=== PATIENT | male | born 1945 | race Hispanic/Latino ===

== ENCOUNTER 2020-02-13 12:56 | Inpatient (IN) | payer MEDICARE ==
[~2020-02-13] VITALS: Ht 170.2 cm; Wt 79.4 kg
[2020-02-13] MEDS ORDERED: NOREPINEPHRINE 4MG/NS 250ML 250 ML IV ONE ×2 (13:00→20:26)
[2020-02-13 13:12] LABS: BASOPHILS % (AUTO) 0.2 % (0.0-5.0); EOSINOPHILS % (AUTO) 9.8 % (0.0-8.0); HEMATOCRIT 25.4 % (42-54); LYMPHOCYTES % (AUTO) 21.4 % (21.0-51.0); MEAN CORPUSCULAR HEMOGLOBIN 32.7 pg (27.0-33.0); MEAN CORPUSCULAR HGB CONC 31.9 g/dL (32.0-36.0); MEAN CORPUSCULAR VOLUME 102.4 fL (79-99); MONOCYTES % (AUTO) 9.8 % (3.0-13.0); NEUTROPHILS % (AUTO) 58.6 % (40.0-77.0); PLATELET COUNT (AUTO) 144 K/uL (130-400); RED BLOOD CELL COUNT(AUTO) 2.48 MIL/uL (4.50-6.20); RED CELL DISTRIBUTION WIDTH 15.9 % (11.0-15.5)
[2020-02-13 13:27] LABS: AMMONIA 187 umol/L (11-32); INR 1.12 (0.85-1.15); PARTIAL THROMBOPLASTIN TIME 32.3 SEC (26.3-35.5)
[2020-02-13 13:28] LABS: APPEARANCE,URINE Clear (CLEAR); BILIRUBIN,URINE Negative (NEGATIVE); COLOR,URINE Dark Yellow (YELLOW); GLUCOSE, URINE (UA) Negative (NEGATIVE); KETONES,URINE Negative (NEGATIVE); LEUKOCYTE ESTERASE ,URINE Trace (NEGATIVE); NITRATE,URINE Negative (NEGATIVE); OCCULT BLOOD,URINE Negative (NEGATIVE); PROTEIN,URINE Negative (NEGATIVE)
[2020-02-13] MEDS ORDERED: ZOSYN 3.375GM+NS 50ML 50 ML IV ONE (13:36)
[2020-02-13] MEDS ORDERED: VANCOMYCIN 1GM+NS 250ML 250 ML IV ONE (13:37)
[2020-02-13] MEDS ORDERED: LACTULOSE 20 GM/30 ML UDCUP ONE ×2 (13:37→18:13)
[2020-02-13 13:39] LABS: ALANINE AMINOTRANSFERASE 14 U/L (12-78); ALBUMIN 2.4 g/dL (3.5-5.0); ASPARTATE AMINOTRANSFERASE 37 U/L (10-37); BILIRUBIN,TOTAL 0.6 mg/dL (0.2-1.0); CARBON DIOXIDE 26 mmol/L (21-32); CHLORIDE 102 mmol/L (101-111); CREATINE KINASE, TOTAL 82 U/L (21-232); CREATININE 2.1 mg/dL (0.5-1.5); GLOMERULAR FILTR. RATE CALC 33 mL/min (>60); GLUCOSE,RANDOM 97 mg/dL (70-105); MYOGLOBIN 124 ng/mL (10-92); SODIUM SERUM 133 mmol/L (136-145); TOTAL PROTEIN, SERUM 6.9 g/dL (6.0-8.3); TROPONIN I < 0.04 ng/mL (0.00-0.06)
[2020-02-13 13:40] LABS: POTASSIUM 6.7 mmol/L (3.5-5.1); UREA NITROGEN, BLOOD 93 mg/dL (7-18)
[2020-02-13 13:46] LABS: ABG BASE EXCESS -2.4 mmol/L (-2.0-3.0); ABG HCO3 21.7 mmol/L (21.0-28.0); ABG OXYGEN SATURATION 98.8 % (95.0-99.0); ABG PCO2 36 mmHg (35-48)
[2020-02-13 13:46] LABS: BACTERIA,URINE Rare /HPF (None Seen); MUCUS,URINE Rare LPF (None Seen); RBC,URINE 0-1 /HPF (0-1); RENAL EPITHELIAL CELLS,URINE Few /HPF (None Seen); SQUAMOUS EPITHELIAL CELL,UR Rare /HPF (0-2); WBC,URINE 0-1 /HPF (0-1)
[2020-02-13] MEDS ORDERED: DEXTROSE 50%-WATER 50 ML DISP.SYRIN IV ONE ×2 (14:13→17:29)
[2020-02-13] MEDS ORDERED: SODIUM BICARB 50MEQ 50ML VIAL ONE ×3 (14:13→20:07)
[2020-02-13] MEDS ORDERED: CALCIUM GLUCONATE 1 GM/10 ML VIAL IV ONE ×2 (14:13→20:06)
[2020-02-13] MEDS ORDERED: INSULIN HUMULIN R 100 UNIT/ML 3ML ONE (14:14)
[2020-02-13] MEDS ORDERED: SODIUM CHLORIDE 0.9% 100 ML IV ONE (14:16)
[2020-02-13] MEDS ORDERED: ALBUTEROL INHALER 90MCG/INH IH ONE (14:42)
[2020-02-13] MEDS ORDERED: PANTOPRAZOLE 40 MG/VIAL ONE (16:40)
[2020-02-13] MEDS ORDERED: OCTREOTIDE ACETATE 200 MCG/ML 5 ML VIAL ONE (16:42)
[2020-02-13] MEDS ORDERED: OCTREOTIDE ACETATE 100 MCG/ML AMP ONE (16:42)
[2020-02-13 17:45] LABS: HEMATOCRIT 25.7 % (42-54)
[2020-02-13 17:54] LABS: RETICULOCYTE % (AUTO) 3.49 % (0.42-2.23)
[2020-02-13 18:12] LABS: % IRON SATURATION 17.9 % (30-44)
[2020-02-13] MEDS ORDERED: SODIUM CHLORIDE 0.9% 1000ML 1,000 ML IV SCH (18:30)
[2020-02-13] MEDS ORDERED: NOREPINEPHRINE BITARTRATE 8 MG/NS 250ML IV SCH ×2 (18:30)
[2020-02-13] MEDS ORDERED: LACTULOSE 20 GM/30 ML UDCUP PO SCH (18:30)
[2020-02-13 19:46] LABS: CREATININE 1.9 mg/dL (0.5-1.5)
[2020-02-13] MEDS: SODIUM POLYSTYRENE SULFONATE 15 GM/60 ML ML PO SCH (20:00)
[2020-02-13] MEDS ORDERED: SODIUM POLYSTYRENE SULFONATE 15 GM/60 ML ML ONE (20:06)
[2020-02-13] MEDS ORDERED: SODIUM CHLORIDE 0.9% 50 ML IV ONE (20:07)
[2020-02-13] MEDS: RIFAXIMIN 550 MG TABLET PO SCH (21:00)
[2020-02-13 22:30] VITALS: BP 110/65
[2020-02-13] MEDS: OCTREOTIDE ACETATE 500 MCG in SODIUM CHLORIDE 0.9% 97.5 ML IV SCH (22:30)
[2020-02-13] MEDS: LACTATED RINGERS 1000ML 1,000 ML IV SCH (22:30)
[2020-02-13] MEDS: PANTOPRAZOLE SODIUM 80 MG in NS 100ML IVP SCH (22:30)
--- NOTE | 2020-02-13 22:30 | NUR ---
Admitted from ER. Lethargic. Incomprehensible words when awakened and readily falls back asleep. Initial assessment completed. 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 F/C 18 fr to bedside drainage. Peg tube clamped. LR infusing at 100mls/hr, Norepinephrine drip at 22 mls/hr, Sandostatin drip at 5 mls/hr, Protonix drip at 10 mls/hr. Saturating 100% on 2 liters n/c
[2020-02-13 22:45] VITALS: BP 107/67
[2020-02-13 23:00] VITALS: BP 112/69
[2020-02-13] MEDS: ZOSYN 3.375GM+NS 50ML 50 ML IV SCH (23:10)
[2020-02-13 23:15] VITALS: BP 94/64
[2020-02-13 23:30] VITALS: BP 111/74
[2020-02-13 23:45] VITALS: BP 96/75
[2020-02-14] VITALS (37 sets, daily range): BP systolic 102–123; BP diastolic 63–88
[2020-02-14 00:17] LABS: HEMATOCRIT 25.6 % (42-54); MEAN CORPUSCULAR HGB CONC 31.6 g/dL (32.0-36.0); MEAN CORPUSCULAR VOLUME 101.2 fL (79-99); RED BLOOD CELL COUNT(AUTO) 2.53 MIL/uL (4.50-6.20); RED CELL DISTRIBUTION WIDTH 15.9 % (11.0-15.5); WHITE BLOOD COUNT (AUTO) 6.6 K/uL (4.8-10.8)
[2020-02-14 00:32] LABS: MAGNESIUM 2.5 mg/dL (1.80-2.40); PHOSPHORUS 4.8 mg/dL (2.5-4.9)
[2020-02-14 00:42] LABS: POTASSIUM 5.3 mmol/L (3.5-5.1)
[2020-02-14 00:43] LABS: CREATININE 1.8 mg/dL (0.5-1.5)
[2020-02-14] MEDS: LACTULOSE 20 GM/30 ML UDCUP PO SCH ×5 (01:22→16:28)
--- NOTE | 2020-02-14 02:00 | NUR ---
Awake now. Oriented to own name. Denies pain, sob. Emotional support given. Potassium level down to 5.3
[2020-02-14] MEDS ORDERED: PANTOPRAZOLE 40 MG/VIAL ONE (02:22)
[2020-02-14] MEDS ORDERED: SODIUM CHLORIDE 0.9% 100 ML IV ONE (02:23)
[2020-02-14] MEDS: SODIUM POLYSTYRENE SULFONATE 15 GM/60 ML ML PO SCH ×3 (04:00→08:11)
[2020-02-14] MEDS: ZOSYN 3.375GM+NS 50ML 50 ML IV SCH ×3 (04:49→21:13)
--- NOTE | 2020-02-14 05:00 | NUR ---
Had a very large, loose green andres colored bm. Bath and rhiannon care given. Complete linen changed.
[2020-02-14 06:08] LABS: HEMATOCRIT 25.8 % (42-54); MEAN CORPUSCULAR HEMOGLOBIN 32.5 pg (27.0-33.0); MEAN CORPUSCULAR HGB CONC 31.8 g/dL (32.0-36.0); MEAN CORPUSCULAR VOLUME 102.4 fL (79-99); RED BLOOD CELL COUNT(AUTO) 2.52 MIL/uL (4.50-6.20); RED CELL DISTRIBUTION WIDTH 15.9 % (11.0-15.5); WHITE BLOOD COUNT (AUTO) 4.8 K/uL (4.8-10.8)
[2020-02-14 06:17] LABS: CREATININE 1.7 mg/dL (0.5-1.5); MAGNESIUM 2.5 mg/dL (1.80-2.40); PHOSPHORUS 4.6 mg/dL (2.5-4.9); POTASSIUM 5.2 mmol/L (3.5-5.1)
[2020-02-14] MEDS ORDERED: NOREPINEPHRINE 4MG/NS 250ML 250 ML IV ONE (07:37)
[2020-02-14] MEDS: LACTATED RINGERS 1000ML 1,000 ML IV SCH (08:12)
[2020-02-14] MEDS: RIFAXIMIN 550 MG TABLET PO SCH ×2 (09:51→21:13)
[2020-02-14] MEDS: PANTOPRAZOLE SODIUM 80 MG in NS 100ML IVP SCH (09:57)
[2020-02-14] MEDS: OCTREOTIDE ACETATE 500 MCG in SODIUM CHLORIDE 0.9% 97.5 ML IV SCH (09:57)
[2020-02-14] MEDS ORDERED: MIDODRINE HCL 5 MG TABLET ONE (15:55)
[2020-02-14 16:01] LABS: INR 1.13 (0.85-1.15); PROTHROMBIN TIME 12.1 SEC (9.6-11.6)
[2020-02-14] MEDS: SODIUM CHLORIDE 0.9% 1000ML 1,000 ML IV SCH (16:26)
[2020-02-14] MEDS ORDERED: MIDODRINE HCL 5 MG TABLET PO SCH (17:15)
--- NOTE | 2020-02-14 19:00 | NUR ---
ACCEPTED CARE ACCEPTED CARE, REPORT RECEIVED USING SBAR FORMAT.
[2020-02-14] MEDS: MIDODRINE HCL 5 MG TABLET PO SCH (21:13)
[2020-02-15] VITALS (17 sets, daily range): BP systolic 78–138; BP diastolic 62–84
--- NOTE | 2020-02-15 | NUR ---
PERSONAL CARE LARGE LIQUID BM. COMPLETE BED BATH GIVEN. TOLERATED WITHOUT DIFFICULTY.
--- NOTE | 2020-02-15 00:54 | NUR ---
TRANSFER CARE REPORT GIVEN USING SBAR FORMAT. PATIENT TRANSFERRED VIA BED WITH RN TO ROOM 215. TOLERATED WITHOUT DIFFICULTY.
--- NOTE | 2020-02-15 02:22 | NUR ---
PT TRANSFER PT TRANSFERRED TO ICU ROOM 215 FROM DAY PT DUE TO COVID + RESULTS REPORTED OVERNIGHT. PT TRANSFERRED UP VIA BED WITH RN x2. PT VSS ON MONITOR. PT HAS NO COMPLAINTS BESIDES BASELINE PAIN IN BILATERAL UE (HANDS), BEING TIRED, AND REQUESTING TO GO TO SLEEP. WILL CONTINUE TO MONITOR.
[2020-02-15] MEDS: ZOSYN 3.375GM+NS 50ML 50 ML IV SCH ×3 (04:33→20:03)
[2020-02-15 05:05] LABS: BASOPHILS % (AUTO) 0.2 % (0.0-5.0); EOSINOPHILS % (AUTO) 6.4 % (0.0-8.0); HEMATOCRIT 25.3 % (42-54); LYMPHOCYTES % (AUTO) 16.7 % (21.0-51.0); MEAN CORPUSCULAR HEMOGLOBIN 31.8 pg (27.0-33.0); MEAN CORPUSCULAR HGB CONC 30.8 g/dL (32.0-36.0); MEAN CORPUSCULAR VOLUME 103.3 fL (79-99); MONOCYTES % (AUTO) 10.7 % (3.0-13.0); NEUTROPHILS % (AUTO) 65.8 % (40.0-77.0); PLATELET COUNT (AUTO) 126 K/uL (130-400); RED BLOOD CELL COUNT(AUTO) 2.45 MIL/uL (4.50-6.20); RED CELL DISTRIBUTION WIDTH 15.5 % (11.0-15.5); WHITE BLOOD COUNT (AUTO) 4.7 K/uL (4.8-10.8)
[2020-02-15 05:10] LABS: ALBUMIN 2.2 g/dL (3.5-5.0); CREATININE 1.3 mg/dL (0.5-1.5); MAGNESIUM 1.8 mg/dL (1.80-2.40); PHOSPHORUS 3.5 mg/dL (2.5-4.9); POTASSIUM 3.8 mmol/L (3.5-5.1); TOTAL PROTEIN, SERUM 6.6 g/dL (6.0-8.3)
[2020-02-15] MEDS: LACTULOSE 20 GM/30 ML UDCUP PO SCH ×4 (06:42→18:40)
[2020-02-15] MEDS ORDERED: FOLIC ACID 1 MG TABLET PO SCH (09:15)
[2020-02-15] MEDS ORDERED: THIAMINE HCL 100 MG TABLET PO SCH (09:15)
[2020-02-15] MEDS: MIDODRINE HCL 5 MG TABLET PO SCH ×3 (09:41→20:05)
[2020-02-15] MEDS: PANTOPRAZOLE 40 MG/VIAL IVP SCH (09:41)
[2020-02-15] MEDS: RIFAXIMIN 550 MG TABLET PO SCH ×2 (09:41→20:04)
[2020-02-15] MEDS: IRON SUCROSE COMPLEX 100 MG in SODIUM CHLORIDE 0.9% 50 ML IV SCH (10:30)
--- NOTE | 2020-02-15 11:40 | NUR ---
RD NOTIFICATION Pt admitted with Hepatic encephalopathy. History of Cirrhosis. No diet order placement x 2-3 days. Pt with history of oropharyngeal dysphagia as per EMR. PEG tube in place. Positive COVID-19. Recommend Initiate Continuous Jevity 1.5 Tube feedings at 20mls/hr. Goal rate of 50mls/hr Recommend flushes at 175mls Q 6hrs Recommendations Faxed to 2C ([id number]), RN notified. RD to continue to monitor. Please notify as additional nutrition concerns arise. Thank you. Addendum: 02/15/20 at [address] Amended: Links added.
[2020-02-15] MEDS: SODIUM CHLORIDE 0.9% 1000ML 1,000 ML IV SCH (18:40)
[2020-02-16] VITALS: BP 138/72
--- NOTE | 2020-02-16 02:59 | NUR ---
received report from vj nielsen nurse, assumed care, pt aox4, head to toe and shift assessment done, timed medication given, see emar, safety maintained, 24 cc done, will continue to monitor.
[2020-02-16] MEDS: LACTULOSE 20 GM/30 ML UDCUP PO SCH ×5 (03:39→23:40)
[2020-02-16 04:05] VITALS: BP 124/69
[2020-02-16] MEDS: ZOSYN 3.375GM+NS 50ML 50 ML IV SCH ×3 (05:30→20:30)
[2020-02-16 07:29] LABS: BASOPHILS % (AUTO) 0.2 % (0.0-5.0); EOSINOPHILS % (AUTO) 0.2 % (0.0-8.0); LYMPHOCYTES % (AUTO) 10.6 % (21.0-51.0); MEAN CORPUSCULAR HEMOGLOBIN 31.9 pg (27.0-33.0); MEAN CORPUSCULAR HGB CONC 30.8 g/dL (32.0-36.0); MEAN CORPUSCULAR VOLUME 103.6 fL (79-99); MONOCYTES % (AUTO) 6.6 % (3.0-13.0); NEUTROPHILS % (AUTO) 82.1 % (40.0-77.0); PLATELET COUNT (AUTO) 96 K/uL (130-400); RED BLOOD CELL COUNT(AUTO) 2.51 MIL/uL (4.50-6.20)
[2020-02-16 08:00] VITALS: BP 166/79
[2020-02-16] MEDS: SODIUM CHLORIDE 0.9% 1000ML 1,000 ML IV SCH ×2 (08:47→20:31)
[2020-02-16] MEDS: FOLIC ACID 1 MG TABLET PO SCH (08:48)
[2020-02-16] MEDS: MIDODRINE HCL 5 MG TABLET PO SCH ×3 (08:48→20:30)
[2020-02-16] MEDS: THIAMINE HCL 100 MG TABLET PO SCH (08:48)
[2020-02-16] MEDS: PANTOPRAZOLE 40 MG/VIAL IVP SCH (08:54)
[2020-02-16] MEDS: RIFAXIMIN 550 MG TABLET PO SCH ×2 (08:54→20:30)
[2020-02-16] MEDS: IRON SUCROSE COMPLEX 100 MG in SODIUM CHLORIDE 0.9% 50 ML IV SCH (09:48)
[2020-02-16 09:51] LABS: MAGNESIUM 1.4 mg/dL (1.80-2.40); PHOSPHORUS 3.1 mg/dL (2.5-4.9)
--- NOTE | 2020-02-16 11:30 | NUR ---
CALLED TO ASSESS PT FOR PICC LINE PLACEMENT ORDERED FOR POOR IV ACCESS AND NEED FOR WATCHMAKER APPRENTICE IV ANTIBIOTICS. PT HAD PREVIOUS UNSUCCESSFUL ATTEMPTED PICC PLACEMENT BY Deborah GUNN RN. THIS PT HAS VERY DIFFICULT AND LIMITED RANGE OF MOTION DUE TO BILATERAL UPPER EXTREMITIES CONTRACTURES. PT STATES HE HAS SEVERE PAIN WHEN ATTEMPTED TO EXTEND ARMS OUTWARDS. WE WILL NOT BE ABLE TO PLACE PICC LINE. MESSAGE CONVEYED TO CADEN SAUCEDO AND WILL ADVISE DR. OUMOU HO FOR FURTHER RECOMMENDATIONS.
[2020-02-16 12:00] VITALS: BP 142/59
[2020-02-16] MEDS ORDERED: LIDOCAINE HCL-MPF 1% 2ML VIAL IJ PRN (15:15)
[2020-02-16] MEDS ORDERED: POTASSIUM CHLORIDE 10MEQ/100ML 100 ML IV PRN (15:15)
[2020-02-16] MEDS ORDERED: POTASSIUM CHLORIDE 20 MEQ ERTAB PO PRN (15:15)
[2020-02-16] MEDS: POTASSIUM CHLORIDE 20MEQ/100ML 100 ML IV PRN (15:42)
[2020-02-16 16:00] VITALS: BP 139/52
[2020-02-16 19:35] VITALS: BP 141/80
[2020-02-16] MEDS: POTASSIUM CHLORIDE 10% ELIXIR 20 MEQ/15 ML UDCUP PO PRN (20:32)
[2020-02-17] VITALS (7 sets, daily range): BP systolic 135–150; BP diastolic 52–91
--- NOTE | 2020-02-17 04:33 | NUR ---
received report from vj nielsen nurse, pt potassium is low 3.0, given k iv 2nd bag, will checked potassium after dose, orders in am, assumed care, shift assessment done, timed medication given see emar, safety maintained, bed in lowest position, bed alarm on, dj house sup called follow up pt picc, picc unsuccessful, will follow up in am for the plan. as per notes pt is a hard stick and after several attempts unsuccessful.
[2020-02-17] MEDS: ZOSYN 3.375GM+NS 50ML 50 ML IV SCH ×3 (05:48→20:09)
[2020-02-17] MEDS: LACTULOSE 20 GM/30 ML UDCUP PO SCH ×3 (05:48→19:52)
[2020-02-17 05:51] LABS: EOSINOPHILS % (AUTO) 0.3 % (0.0-8.0); HEMATOCRIT 26.3 % (42-54); MEAN CORPUSCULAR HEMOGLOBIN 31.6 pg (27.0-33.0); MEAN CORPUSCULAR HGB CONC 30.8 g/dL (32.0-36.0); MEAN CORPUSCULAR VOLUME 102.7 fL (79-99); MONOCYTES % (AUTO) 7.5 % (3.0-13.0); NEUTROPHILS % (AUTO) 78.7 % (40.0-77.0); PLATELET COUNT (AUTO) 158 K/uL (130-400); RED BLOOD CELL COUNT(AUTO) 2.56 MIL/uL (4.50-6.20); RED CELL DISTRIBUTION WIDTH 15.1 % (11.0-15.5); WHITE BLOOD COUNT (AUTO) 7.5 K/uL (4.8-10.8)
[2020-02-17 06:20] LABS: CREATININE 1.1 mg/dL (0.5-1.5); MAGNESIUM 1.4 mg/dL (1.80-2.40)
[2020-02-17 06:32] LABS: POTASSIUM 2.9 mmol/L (3.5-5.1)
--- NOTE | 2020-02-17 06:36 | NUR ---
result read back from lab k 2.9, followed potassium protocol transfusing first bag . needs second bag. safety maintained.
[2020-02-17] MEDS: POTASSIUM CHLORIDE 20MEQ/100ML 100 ML IV PRN ×5 (06:40→20:38)
[2020-02-17] MEDS: IRON SUCROSE COMPLEX 100 MG in SODIUM CHLORIDE 0.9% 50 ML IV SCH (08:53)
[2020-02-17] MEDS: THIAMINE HCL 100 MG TABLET PO SCH (08:53)
[2020-02-17] MEDS: FOLIC ACID 1 MG TABLET PO SCH (08:53)
[2020-02-17] MEDS: RIFAXIMIN 550 MG TABLET PO SCH ×2 (09:37→20:11)
[2020-02-17] MEDS: PANTOPRAZOLE 40 MG/VIAL IVP SCH (09:37)
[2020-02-17] MEDS: MIDODRINE HCL 5 MG TABLET PO SCH ×3 (09:38→20:10)
[2020-02-17] MEDS: SODIUM CHLORIDE 0.9% 1000ML 1,000 ML IV SCH ×2 (09:41→23:45)
[2020-02-17] MEDS ORDERED: PHARMACY COMMUNICATION MISC SCH (11:30)
[2020-02-17] MEDS ORDERED: MAGNESIUM 2GM PREMIX 50ML 50 ML IV SCH (13:30)
[2020-02-17] MEDS: CIPROFLOXACIN HCL/DEXAMETH 7.5 ML DROPS.SUSP OTIC SCH ×2 (13:59→19:52)
--- NOTE | 2020-02-17 16:55 | NUR ---
cm note met with patient, request i speak to his daughter and son, call made to daughter dominga valdivia [phone], and states pt resdes at home. she resides with pt, and pt is bedbound, wears adult briefs, dtr provides enteral feedings via peg at home. has hospital bed, w/c scooter, patrick lift, unable to recall name of agency. pt nonambulatory, normally uses [place] [email or web address]. to go to [facility]. has provider 50hrs/week. discussed with daughter orders for [facility] for pt, and she is agreeable for referral but prefers he not go longer than 3 weeks. states will talk to md about this. choice letter obtained, also call made to son shelton valdivia and is also in agreement for [facility] referral. Addendum: 02/17/20 at 1704 by SACHA CLEMONS CM Amended: Links added. Addendum: 02/17/20 at 1759 by SACHA CLEMONS CM called pt's son and daughter and updated that order is for [facility] not [facility]. they are both in agreement for snf at [facility] obtained choice letter.
[2020-02-17] MEDS: POTASSIUM CHLORIDE 10% ELIXIR 20 MEQ/15 ML UDCUP PO PRN (20:10)
[2020-02-18 04:05] VITALS: BP 83/57
[2020-02-18] MEDS: POTASSIUM CHLORIDE 20MEQ/100ML 100 ML IV PRN (04:56)
[2020-02-18] MEDS: ZOSYN 3.375GM+NS 50ML 50 ML IV SCH ×3 (04:58→20:52)
--- NOTE | 2020-02-18 05:05 | NUR ---
RECEIVED REPORT FROM SHERYL CORTES NURSE, ASSUMED CARE, PT CONFUSED ALL NIGHT REMOVED HIS TELEMETRY REFUSED TELEMETRY DC TELEMETRY, REMOVED IV ON LEFT HAND, CLEANED PT, SHIFT ASSESSMENT DONE, 24 CC DONE, SAFETY MAINTAINED.
--- NOTE | 2020-02-18 05:11 | NUR ---
PT CONFUSED PULLED IV ON LEFT HAND, CLEANED PT, PULLED LEADS 3X REFUSED TELEMETRY CONTACTED KEVEN NASCIMENTO [facility] [facility], INFORMED HER PT REFUSED TELE, ORDERED OK TO DC TELE, DC TELE, CONTACTED LARRY CHARGED NURSE AND INFORMED TELE MOTORCYCLE POLICE.
[2020-02-18 05:54] LABS: BASOPHILS % (AUTO) 0.1 % (0.0-5.0); EOSINOPHILS % (AUTO) 0.1 % (0.0-8.0); LYMPHOCYTES % (AUTO) 11.9 % (21.0-51.0); MEAN CORPUSCULAR HEMOGLOBIN 32.5 pg (27.0-33.0); MEAN CORPUSCULAR HGB CONC 31.2 g/dL (32.0-36.0); MEAN CORPUSCULAR VOLUME 104.2 fL (79-99); MONOCYTES % (AUTO) 8.9 % (3.0-13.0); NEUTROPHILS % (AUTO) 78.7 % (40.0-77.0); PLATELET COUNT (AUTO) 151 K/uL (130-400); RED CELL DISTRIBUTION WIDTH 15.6 % (11.0-15.5); WHITE BLOOD COUNT (AUTO) 7.5 K/uL (4.8-10.8)
[2020-02-18 06:10] LABS: CREATININE 0.9 mg/dL (0.5-1.5); POTASSIUM 3.7 mmol/L (3.5-5.1)
[2020-02-18 06:16] VITALS: BP 93/42
[2020-02-18] MEDS: FOLIC ACID 1 MG TABLET PO SCH (09:00)
[2020-02-18] MEDS: MIDODRINE HCL 5 MG TABLET PO SCH ×3 (09:00→21:04)
[2020-02-18] MEDS: THIAMINE HCL 100 MG TABLET PO SCH (09:00)
[2020-02-18] MEDS: RIFAXIMIN 550 MG TABLET PO SCH ×2 (09:00→21:04)
[2020-02-18] MEDS: PANTOPRAZOLE 40 MG/VIAL IVP SCH (09:01)
[2020-02-18] MEDS: LACTULOSE 20 GM/30 ML UDCUP PO SCH ×2 (09:01→21:03)
[2020-02-18] MEDS: IRON SUCROSE COMPLEX 100 MG in SODIUM CHLORIDE 0.9% 50 ML IV SCH (09:02)
[2020-02-18] MEDS: CIPROFLOXACIN HCL/DEXAMETH 7.5 ML DROPS.SUSP OTIC SCH ×2 (09:02→21:00)
[2020-02-18 11:00] VITALS: BP 148/91
[2020-02-18] MEDS ORDERED: COMPOUND IV MISC 1 EACH IVSOLN MISC PRN (12:00)
[2020-02-18] MEDS: SODIUM CHLORIDE 0.9% 1000ML 1,000 ML IV SCH (12:18)
[2020-02-18 14:00] LABS: INR 1.26 (0.85-1.15); PROTHROMBIN TIME 13.5 SEC (9.6-11.6)
[2020-02-18 16:00] VITALS: BP 173/77
[2020-02-18 21:18] VITALS: BP 149/88
[2020-02-19] VITALS (14 sets, daily range): BP systolic 111–162; BP diastolic 70–105
[2020-02-19 01:05] LABS: INR 1.26 (0.85-1.15); PARTIAL THROMBOPLASTIN TIME 30.8 SEC (26.3-35.5); PROTHROMBIN TIME 13.5 SEC (9.6-11.6)
--- NOTE | 2020-02-19 01:09 | NUR ---
Received report from nurse, notified of pending PICC line insertion consent form, charge nurse Iris notified and consent given per daughter Yara via telephone, Consent form signed per Charge nurse Iris, labs ordered per protocol
[2020-02-19] MEDS: SODIUM CHLORIDE 0.9% 1000ML 1,000 ML IV SCH ×2 (03:05→15:19)
[2020-02-19] MEDS: ZOSYN 3.375GM+NS 50ML 50 ML IV SCH ×3 (05:46→20:33)
[2020-02-19] MEDS: MIDODRINE HCL 5 MG TABLET PO SCH ×3 (07:55→20:32)
[2020-02-19] MEDS: THIAMINE HCL 100 MG TABLET PO SCH (07:55)
[2020-02-19] MEDS: IRON SUCROSE COMPLEX 100 MG in SODIUM CHLORIDE 0.9% 50 ML IV SCH (07:55)
[2020-02-19] MEDS: LACTULOSE 20 GM/30 ML UDCUP PO SCH ×2 (07:55→20:31)
[2020-02-19] MEDS: CIPROFLOXACIN HCL/DEXAMETH 7.5 ML DROPS.SUSP OTIC SCH ×2 (07:55→20:32)
[2020-02-19] MEDS: FOLIC ACID 1 MG TABLET PO SCH (08:10)
[2020-02-19] MEDS: PANTOPRAZOLE 40 MG/VIAL IVP SCH (09:35)
[2020-02-19] MEDS: RIFAXIMIN 550 MG TABLET PO SCH ×2 (09:35→20:37)
[2020-02-19] MEDS ORDERED: LIDOCAINE HCL 1% MDV 50ML VIAL ONE (15:10)
--- NOTE | 2020-02-19 17:31 | NUR ---
SRINI COMPLETED, REFERRAL COMPLETED, FOR DISCHARGE TO [facility] TOMORROW PER DR. Paulino Addendum: 02/19/20 at 1733 by FLORES CHARLES RN CM Amended: Links added.
[2020-02-20 01:04] VITALS: BP 130/78
[2020-02-20 04:24] VITALS: BP_SYST 134; BP_SYST 87; BP_DIAS 55; BP_DIAS 82
[2020-02-20] MEDS: SODIUM CHLORIDE 0.9% 1000ML 1,000 ML IV SCH (05:05)
[2020-02-20] MEDS: ZOSYN 3.375GM+NS 50ML 50 ML IV SCH ×2 (05:18→13:00)
[2020-02-20 08:00] VITALS: BP 151/98
--- NOTE | 2020-02-20 08:34 | NUR ---
CHART REVIEWED, EXPECTED DC TODAY VIA EMS TO [facility] WHEN RX AND MED REC COMPLETED AND CLEARED BY DR Deborah ANN TO ARRANGE EMS TRANSPORT Addendum: 02/20/20 at 0842 by FLORES CHARLES RN CM Amended: Links added.
[2020-02-20] MEDS: LACTULOSE 20 GM/30 ML UDCUP PO SCH (09:16)
[2020-02-20] MEDS: FOLIC ACID 1 MG TABLET PO SCH (09:16)
[2020-02-20] MEDS: THIAMINE HCL 100 MG TABLET PO SCH (09:16)
[2020-02-20] MEDS: RIFAXIMIN 550 MG TABLET PO SCH (09:20)
[2020-02-20] MEDS: PANTOPRAZOLE 40 MG/VIAL IVP SCH (09:20)
[2020-02-20] MEDS: MIDODRINE HCL 5 MG TABLET PO SCH ×2 (09:21→13:07)
[2020-02-20] MEDS: CIPROFLOXACIN HCL/DEXAMETH 7.5 ML DROPS.SUSP OTIC SCH (09:21)
[2020-02-20] MEDS: IRON SUCROSE COMPLEX 100 MG in SODIUM CHLORIDE 0.9% 50 ML IV SCH (09:22)
[2020-02-20 12:00] VITALS: BP 126/79
--- NOTE | 2020-02-20 18:55 | NUR ---
Report given to Oswaldo Alexandre LVN at [facility] at 1700.Pt discharged via stretcher to [facility] 1830. Pt transported via stretcher no complaints or distress noted.
== END 2020-02-20 18:51 | DRG 871 ==
LOC: EDH 12:56 → EDHIP 16:15 → DAHIP 22:25 → 2CH 02-15 01:59 → 4AH 02-15 17:50
PROVIDERS: ADMIT Internal Medicine Infectious Disease; ATTEND Internal Medicine Infectious Disease
PROC: 05HY33Z Insertion of Infusion Device into Upper Vein, Percutaneous Approach (ICD-10-PCS; principal; 2020-02-14)
PROC: B54NZZA Ultrasonography of Left Upper Extremity Veins, Guidance (ICD-10-PCS; 2020-02-14)
PROC: 0JH63XZ Insertion of Tunneled Vascular Access Device into Chest Subcutaneous Tissue and Fascia, Percutaneous Approach (ICD-10-PCS; 2020-02-14)
DX: A41.9 Sepsis, unspecified organism (principal); U07.1 COVID-19; K76.7 Hepatorenal syndrome; G93.41 Metabolic encephalopathy; E87.1 Hypo-osmolality and hyponatremia; N17.9 Acute kidney failure, unspecified; K72.90 Hepatic failure, unspecified without coma; E78.5 Hyperlipidemia, unspecified; I12.9 Hypertensive chronic kidney disease with stage 1 through stage 4 chronic kidney disease, or unspecified chronic kidney disease; K74.60 Unspecified cirrhosis of liver; Z93.1 Gastrostomy status; E87.5 Hyperkalemia; D64.9 Anemia, unspecified; E78.00 Pure hypercholesterolemia, unspecified; E86.9 Volume depletion, unspecified; F03.90 Unspecified dementia, unspecified severity, without behavioral disturbance, psychotic disturbance, mood disturbance, and anxiety; H66.91 Otitis media, unspecified, right ear; H70.91 Unspecified mastoiditis, right ear; M10.9 Gout, unspecified; M19.90 Unspecified osteoarthritis, unspecified site; N18.9 Chronic kidney disease, unspecified; R13.12 Dysphagia, oropharyngeal phase; Z74.01 Bed confinement status; Z86.73 Personal history of transient ischemic attack (TIA), and cerebral infarction without residual deficits
CPT/HCPCS: 36415; 36558; 36600; 70450; 71045; 74176; 77001; 80048; 80053; 81001; 82140; 82270; 82550; 82607; 82728; 82803; 82948; 83605; 83735; 83874; 84100; 84132; 84145; 84484; 85014; 85018; 85025; 85027; 85610; 85730; 86850; 86900; 86901; 87040; 87070; 87077; 87088; 87186; 87426; 93005; 99291; C1751; C1894; C9113; G0378; J0610; J1644; J1756; J1815; J2354; J2543; J3370; J3475; J3480; J3490; J7030; J7070; J7120; U0003